=== PATIENT | female | born 2005 | race Caucasian/White ===

== ENCOUNTER 2023-02-13 20:23 | Inpatient (IN) ==
[2023-02-14] MEDS ORDERED: Al Hydrox/Mg Hydrox/Simet LIQ 30 ML UDC PO PRN (06:57)
[2023-02-14] MEDS: Vitamin THERAPEUTIC TAB PO SCH (10:08)
[2023-02-15] MEDS: Vitamin THERAPEUTIC TAB PO SCH (08:55)
[2023-02-16 08:37] VITALS: BP 116/64
[2023-02-16] MEDS: Vitamin THERAPEUTIC TAB PO SCH (08:55)
== END 2023-02-16 12:48 | disposition home or self-care (01) | DRG 882 ==
LOC: EDSEX → ED 20:23 → EDHOLD 02-14 05:34 → BSU 02-14 08:45
PROVIDERS: ADMIT Psychiatry & Neurology Psychiatry; ATTEND Psychiatry & Neurology Psychiatry